=== PATIENT | female | born 1970 | race Asian ===

== ENCOUNTER 2017-06-01 10:03 | Day surgery (SDC) | payer BC ==
[2017-06-01] MEDS ORDERED: ONDANSETRON 4 MG INJ IV (11:30)
[2017-06-01] MEDS ORDERED: FENTAnyl 50 MCG/ML VIAL IV ×3 (11:30)
[2017-06-01] MEDS ORDERED: MEPERIDINE 25 MG INJ IV (11:30)
[2017-06-01] MEDS ORDERED: LABETALOL HCL 20MG INJ IV (11:30)
[2017-06-01] MEDS ORDERED: EPHEDrine SULFATE 50 MG/5 ML SYG IV (11:30)
[2017-06-01] MEDS ORDERED: DIPHENHYDRAMINE 50 MG INJ IV (11:30)
[2017-06-01] MEDS ORDERED: OXYCODONE/ACETAMINOPHEN (5/325) TAB PO (11:30)
[2017-06-01] MEDS ORDERED: METOCLOPRAMIDE 10 MG INJ IV (11:30)
[2017-06-01] MEDS ORDERED: HYDROmorphONE (0.2 MG/ML) 10ML SYG IV ×3 (11:30)
[2017-06-01] MEDS ORDERED: ROCURONIUM 50 MG INJ (13:37)
[2017-06-01] MEDS ORDERED: PROPOFOL 20 ML (13:37)
[2017-06-01] MEDS ORDERED: MIDAZOLAM 1 MG/ML 2 ML INJ (13:38)
[2017-06-01] MEDS ORDERED: FENTAnyl 50 MCG/ML VIAL (13:38)
[2017-06-01] MEDS ORDERED: DEXAMETHASONE 4 MG/ML 1 ML INJ (13:42)
[2017-06-01] MEDS ORDERED: METOCLOPRAMIDE 10 MG INJ (13:42)
[2017-06-01] MEDS ORDERED: CEFAZOLIN 1 GM INJ (13:42)
[2017-06-01] MEDS ORDERED: ONDANSETRON 4 MG INJ (13:42)
[2017-06-01] MEDS ORDERED: NEOSTIGMINE 3 MG/3 ML SYRINGE (14:09)
[2017-06-01] MEDS ORDERED: GLYCOPYRROLATE 0.4 MG INJ (14:09)
[2017-06-01] MEDS: LIDOCAINE 1%/EPI 30 ML INJ (14:12)
[2017-06-01] MEDS: OXYMETAZOLINE 0.05% 15 ML NAS SPRAY NASAL (14:13)
[2017-06-01] MEDS: NEOMYC/POLYMYX/BACIT 30 GM OINT (14:14)
== END 2017-06-01 15:54 | disposition home or self-care (01) ==
LOC: SDS 10:03
DX: J34.2 Deviated nasal septum (principal); E78.5 Hyperlipidemia, unspecified; I10 Essential (primary) hypertension; J45.909 Unspecified asthma, uncomplicated
CPT/HCPCS: 30140